=== PATIENT | male | born 1990 | race Two or more races ===

== ENCOUNTER 2017-08-07 20:01 | Emergency (ER) | payer SELFPAY ==
--- NOTE | 2017-08-07 20:04 | PDOC ---
Rapid Medical Evaluation Time Seen by Provider: 08/07/17 20:02 Medical Evaluation: Allergies Allergy/AdvReac Type Severity Reaction Status Date / Time No Known Allergies Allergy Verified 03/05/16 07:55 08/07/17 20:02 Healthy 26 year old male with abdominal pain and vomiting x 5 and diarrhea x 2 today. Unable to keep down anything other than water. V/s unremarkable. Abdomen diffusely tender but not peritoneal. -Abdominal labs -To Main ED for further evaluation
[2017-08-07 20:07] VITALS: BP 125/74; PULSE 90; TEMP 98.6; BMI 22.2
[2017-08-07 20:42] LABS: URINE APPEARANCE CLEAR; URINE BILIRUBIN NEGATIVE (NEGATIVE); URINE BLOOD NEGATIVE (NEGATIVE); URINE COLOR YELLOW; URINE GLUCOSE (UA) NEGATIVE (NEGATIVE); URINE KETONE NEGATIVE (NEGATIVE); URINE LEUK ESTERASE NEGATIVE (NEGATIVE); URINE NITRITE NEGATIVE (NEGATIVE); URINE PROTEIN NEGATIVE (NEGATIVE); URINE UROBILINOGEN 4.0 E.U/dl mg/dL (0.2-1.0)
[2017-08-07] MEDS ORDERED: KETOROLAC TROMETHAMINE 30 MG/1 ML VIAL IVPUSH ONE (20:53)
[2017-08-07] MEDS ORDERED: PANTOPRAZOLE SODIUM 40 MG in SODIUM CHLORIDE 100 ML IVPB ONE (20:53)
[2017-08-07] MEDS ORDERED: SODIUM CHLORIDE 1,000 ML IV STA (20:53)
--- NOTE | 2017-08-07 20:53 | PDOC ---
History of Present Illness - General History Source: Patient Exam Limitations: No Limitations - History of Present Illness Initial Comments: 08/07/17 21:01 The patient is a 26 year old male, with no significant PMHx, who presents to the emergency department with abdominal pain, nausea, vomiting and two epsidoes of diarrhea today. The patient reports his pain as 8/10, diffuse, and crampy. He states he has been unable to tolerate anything by mouth. He reports multiple episodes of nonbloody/nonbilious emesis today. He also report two epsidoes of watery stool earlier in the day. He reports his and child are ill as well. He denies taking medication for pain or other symptoms. Allergies: none reported Surgical Hx: none reported Social Hx: Tobacco use daily <Marylu Cazares - Last Filed: 08/07/17 21:04> - General History Source: Patient <Glenroy Rodriguez - Last Filed: 08/07/17 22:08> - General Chief Complaint: Nausea/Vomiting Stated Complaint: NAUSEA/VOMITING Time Seen by Provider: 08/07/17 20:02 Past History <Marylu Cazares - Last Filed: 08/07/17 21:04> - Suicide/Smoking/Psychosocial Hx Smoking History: Current every day smoker Have you smoked in the past 12 months: No Number of Cigarettes Smoked Daily: 3 Information on smoking cessation initiated: No 'Breaking Loose' booklet given: 10/05/13 Hx Alcohol Use: No Drug/Substance Use Hx: No Substance Use Type: None <Glenroy Rodriguez - Last Filed: 08/07/17 22:08> - Past Medical History Allergies/Adverse Reactions: Allergies Allergy/AdvReac Type Severity Reaction Status Date / Time No Known Allergies Allergy Verified 08/07/17 20:08 Home Medications: Ambulatory Orders Ondansetron [Zofran *Odt*] 4 mg SL TID #30 od.tablet 08/07/17 Review of Systems - Review of Systems Able to Perform ROS?: Yes Comments:: 08/07/17 21:04 CONSTITUTIONAL: Absent: fever, chills, diaphoresis, generalized weakness, malaise, loss of appetite HEENT: Absent: rhinorrhea, nasal congestion, throat pain, throat swelling, difficulty swallowing, mouth swelling, ear pain, eye pain, visual Changes CARDIOVASCULAR: Absent: chest pain, syncope, palpitations, irregular heart rate, lightheadedness , peripheral edema RESPIRATORY: Absent: cough, shortness of breath, dyspnea with exertion, orthopnea, wheezing, stridor, hemoptysis GASTROINTESTINAL: (+) abdominal pain, nausea, vomiting, diarrhea, Absent: abdominal distension, constipation, melena, hematochezia GENITOURINARY: Absent: dysuria, frequency, urgency, hesitancy, hematuria, flank pain, genital pain MUSCULOSKELETAL: Absent: myalgia, arthralgia, joint swelling SKIN: Absent: rash, itching, pallor HEMATOLOGIC/IMMUNOLOGIC: Absent: easy bleeding, easy bruising, lymphadenopathy, frequent infections ENDOCRINE: Absent: unexplained weight gain, unexplained weight loss, heat intolerance, cold intolerance NEUROLOGIC: Absent: headache, focal weakness or paresthesias, dizziness, unsteady gait, seizure, mental status changes, bladder or bowel incontinence PSYCHIATRIC: Absent: anxiety, depression, suicidal or homicidal ideation, hallucinations. <Marylu Cazares - Last Filed: 08/07/17 21:04> *Physical Exam - Vital Signs Last Vital Signs Temp Pulse Resp BP Pulse Ox 98.6 F 90 16 125/74 97 08/07/17 20:04 08/07/17 20:04 08/07/17 20:04 08/07/17 20:04 08/07/17 20:04 - Physical Exam Comments: 08/07/17 21:04 GENERAL: Well developed, well nourished. Awake and alert. No acute distress. HEENT: Normocephalic, atraumatic. PERRLA, EOMI. No conjunctival pallor. Sclera are non- icteric. Moist mucous membranes. Oropharynx is clear. NECK: Supple. Full ROM. No JVD. Carotid pulses 2+ and symmetric, without bruits. No thyromegaly. No lymphadenopathy. CARDIOVASCULAR: Regular rate and rhythm. No murmurs, rubs, or gallops. Distal pulses are 2+ and symmetric. PULMONARY: No evidence of respiratory distress. Lungs clear to auscultation bilaterally. No wheezing, rales or rhonchi. ABDOMINAL: Soft. Non-tender. Non-distended. No rebound or guarding. No organomegaly. Normoactive bowel sounds. MUSCULOSKELETAL Normal range of motion at all joints. No bony deformities or tenderness. No CVA tenderness. EXTREMITIES: No cyanosis. No clubbing. No edema. No calf tenderness. SKIN: Warm and dry. Normal capillary refill. No rashes. No jaundice. NEUROLOGICAL: Alert, awake, appropriate. Cranial nerves 2-12 intact. Normoreflexic in the upper and lower extremities. Normal speech. Toes are down-going bilaterally. Gait is normal without ataxia. PSYCHIATRIC: Cooperative. Good eye contact. Appropriate mood and affect. <Marylu Cazares - Last Filed: 08/07/17 21:04> - Vital Signs Last Vital Signs Temp Pulse Resp BP Pulse Ox 98.6 F 90 16 125/74 97 08/07/17 20:04 08/07/17 20:04 08/07/17 20:04 08/07/17 20:04 08/07/17 20:04 <Glenroy Rodriguez - Last Filed: 08/07/17 22:08> ED Treatment Course - LABORATORY CBC & Chemistry Diagram: 08/07/17 20:14 08/07/17 20:14 - ADDITIONAL ORDERS Additional order review: Laboratory Results 08/07/17 20:30 Urine Color Yellow Urine Appearance Clear Urine pH 6.0 Ur Specific [place] 1.028 Urine Protein Negative Urine Glucose (UA) Negative Urine Ketones Negative Urine Blood Negative Urine Nitrite Negative Urine Bilirubin Negative Urine Urobilinogen 4.0 e.u/dl 08/07/17 20:14 RBC 4.69 MCV 93.4 MCHC 33.7 RDW 13.1 MPV 9.4 D Neutrophils % 87.2 H D Lymphocytes % 4.8 L D Monocytes % 7.5 Eosinophils % 0.2 D Basophils % 0.3 <Marylu Cazares - Last Filed: 08/07/17 21:04> - LABORATORY CBC & Chemistry Diagram: 08/07/17 20:14 08/07/17 20:14 <Glenroy Rodriguez - Last Filed: 08/07/17 22:08> Medical Decision Making - Medical Decision Making 08/07/17 22:05 Dr. Rodriguez: The scribe's documentation has been prepared under my direction and personally reviewed by me in its entirery. I confirm that the note above accurately reflects all work, treatment, procedures, and medical decision making performed by me. Pt feels better after IVF in the department. Pt will be discharged to follow up with his pcp as needed <Glenroy Rodriguez - Last Filed: 08/07/17 22:08> *DC/Admit/Observation/Transfer - Attestations Scribe Attestion: 08/07/17 21:05 Documentation prepared by Marylu Cazares, acting as medical staff services manager for Glenroy Rodriguez DO <Marylu Cazares - Last Filed: 08/07/17 21:04> - Discharge Dispostion Admit: No <Glenroy Rodriguez - Last Filed: 08/07/17 22:08> Diagnosis at time of Disposition: Nausea and vomiting - Discharge Dispostion Disposition: HOME Condition at time of disposition: Improved - Referrals Referrals: Stephanie Squires MD [Staff Physician] - - Patient Instructions Printed Discharge Instructions: DI for Nausea -- Adult, DI for Vomiting -- Adult Additional Instructions: Take medication as directed. Drink plenty of fluids to prevent dehydration. Return if any problems. Encourage good hand washing at home to prevent transfer of illness to others at home. - Post Discharge Activity Forms/Work/School Notes: Back to Work
[2017-08-07 20:57] LABS: BASO % 0.3 % (0-2.0); EOS % 0.2 % (0-4.5); MCH 31.4 pg (25.7-33.7); MCHC 33.7 g/dl (32.0-35.9); MEAN CELL VOLUME 93.4 fl (80-96); MEAN PLT VOLUME 9.4 fl (7.5-11.1); NEUT % 87.2 % (42.8-82.8); PLATELET COUNT 184 K/MM3 (134-434); RDW 13.1 % (11.9-15.9); WHITE BLOOD COUNT 13.9 K/mm3 (4.0-10.0)
[2017-08-07 21:21] LABS: ALBUMIN 4.3 g/dl (3.4-5.0); ALK PHOS 75 U/L (45-117); ANION GAP 8 (8-16); BILIRUBIN,TOTAL 1.9 mg/dL (0.2-1.0); CO2 26 mmol/L (21-32); CREATININE 0.9 mg/dL (0.7-1.3); GLUCOSE,RANDOM 100 mg/dL (74-106); SGOT/AST 15 U/L (15-37); SGPT/ALT 24 U/L (12-78); TOT PROT 7.5 g/dl (6.4-8.2)
[2017-08-07] MEDS ORDERED: PANTOPRAZOLE SODIUM 40 MG/100 ML BAG IVPB ONE (21:42)
[2017-08-07] MEDS ORDERED: KETOROLAC TROMETHAMINE 30 MG/1 ML VIAL ONE (21:42)
[2017-08-07 22:01] LABS: URINE LEUK ESTERASE Negative (NEGATIVE)
== END 2017-08-08 00:30 | disposition home or self-care (01) ==
LOC: JER 20:01
PROC: 3E033GC Introduction of Other Therapeutic Substance into Peripheral Vein, Percutaneous Approach (ICD-10-PCS; principal; 2017-08-07)
PROC: 3E0333Z Introduction of Anti-inflammatory into Peripheral Vein, Percutaneous Approach (ICD-10-PCS; 2017-08-07)
PROC: 3E0337Z Introduction of Electrolytic and Water Balance Substance into Peripheral Vein, Percutaneous Approach (ICD-10-PCS; 2017-08-07)
DX: R11.2 Nausea with vomiting, unspecified (principal)
CPT/HCPCS: 36415; 80053; 81003; 83690; 85025; 99283-25

== ENCOUNTER 2018-01-18 02:12 | Emergency (ER) | payer OTHER ==
[2018-01-18 02:50] VITALS: TEMP 98.1; BMI 19.5
[2018-01-18] MEDS ORDERED: FAMOTIDINE 20 MG/50 ML IVPB 20 MG/50 ML MG IVPB ONE ×2 (03:17→04:11)
[2018-01-18] MEDS ORDERED: ACETAMINOPHEN 1000 MG/100 ML VIAL (NON FORMULARY) IVPB ONE (03:17)
[2018-01-18] MEDS ORDERED: SODIUM CHLORIDE 1,000 ML IV STA (03:17)
[2018-01-18] MEDS ORDERED: ONDANSETRON 4 MG TABLET PO ONE (03:17)
[2018-01-18] MEDS ORDERED: ACETAMINOPHEN INJECTION 100 ML IVPB ONE (03:46)
[2018-01-18] MEDS ORDERED: ONDANSETRON *ODT* 4 MG TABLET ONE (03:46)
[2018-01-18 04:12] LABS: BASO % 0.6 % (0-2.0); EOS % 0.4 % (0-4.5); HEMATOCRIT 40.6 % (35.4-49); HEMOGLOBIN 13.7 GM/dL (11.7-16.9); LYMPH % 16.7 % (8-40); MCH 31.2 pg (25.7-33.7); MCHC 33.7 g/dl (32.0-35.9); MEAN CELL VOLUME 92.7 fl (80-96); MEAN PLT VOLUME 8.4 fl (7.5-11.1); MONO % 8.6 % (3.8-10.2); NEUT % 73.7 % (42.8-82.8); PLATELET COUNT 217 K/MM3 (134-434); RBC 4.38 M/mm3 (4.00-5.60); RDW 12.9 % (11.9-15.9); WHITE BLOOD COUNT 9.9 K/mm3 (4.0-10.0)
[2018-01-18 04:29] LABS: ALBUMIN 4.2 g/dl (3.4-5.0); ALK PHOS 72 U/L (45-117); ANION GAP 8 (8-16); BILIRUBIN,TOTAL 0.5 mg/dL (0.2-1.0); BLOOD UREA NITROGEN 7 mg/dL (7-18); CALCIUM 9.1 mg/dL (8.5-10.1); CHLORIDE 106 mmol/L (98-107); CO2 29 mmol/L (21-32); CREATININE 0.8 mg/dL (0.7-1.3); GLUCOSE,RANDOM 105 mg/dL (74-106); LIPASE 117 U/L (73-393); POTASSIUM 3.7 mmol/L (3.5-5.1); SGOT/AST 18 U/L (15-37); SGPT/ALT 21 U/L (12-78); SODIUM 143 mmol/L (136-145); TOT PROT 7.2 g/dl (6.4-8.2)
--- NOTE | 2018-01-18 04:33 | PDOC ---
History of Present Illness - General Chief Complaint: Pain, Acute Stated Complaint: ABD PAIN Time Seen by Provider: 01/18/18 02:54 - History of Present Illness Initial Comments: 01/18/18 04:30 27 M with no PMH presents to ED with epigastric and RLQ pain. Pt states that he awoke with the pain this morning. It is associated with nausea and vomiting. Pt denies F/C. Denies diarrhea/constipation. Pt endorses drinking one drink earlier this evening. Denies any other drug use, denies marijuana. Pt denies prior surgical history. Denies dysuria. Denies scrotal pain. Past History - Past Medical History Allergies/Adverse Reactions: Allergies Allergy/AdvReac Type Severity Reaction Status Date / Time No Known Allergies Allergy Verified 01/18/18 02:47 Home Medications: Ambulatory Orders Ondansetron [Zofran *Odt*] 4 mg SL TID #30 od.tablet 08/07/17 COPD: No - Suicide/Smoking/Psychosocial Hx Smoking History: Never smoked Have you smoked in the past 12 months: No Number of Cigarettes Smoked Daily: 3 Information on smoking cessation initiated: No 'Breaking Loose' booklet given: 10/05/13 Hx Alcohol Use: No Drug/Substance Use Hx: No Substance Use Type: None Review of Systems - Review of Systems Comments:: 01/18/18 04:32 "GENERAL/CONSTITUTIONAL: No fever or chills. No weakness. HEAD, EYES, EARS, NOSE AND THROAT: No change in vision. No ear pain or discharge. No sore throat. CARDIOVASCULAR: No chest pain or shortness of breath. RESPIRATORY: No cough, wheezing, or hemoptysis. GASTROINTESTINAL: + abdominal pain, + nausea, + vomiting, no diarrhea or constipation. GENITOURINARY: No dysuria, frequency, or change in urination. MUSCULOSKELETAL: No joint or muscle swelling or pain. No neck or back pain. SKIN: No rash NEUROLOGIC: No headache, vertigo, loss of consciousness, or change in strength/ sensation. ENDOCRINE: No increased thirst. No abnormal weight change. HEMATOLOGIC/LYMPHATIC: No anemia, easy bleeding, or history of blood clots. ALLERGIC/IMMUNOLOGIC: No hives or skin allergy. " *Physical Exam - Vital Signs Last Vital Signs Temp Pulse Resp BP Pulse Ox 98.1 F 71 18 129/77 97 01/18/18 02:47 01/18/18 02:47 01/18/18 02:47 01/18/18 02:47 01/18/18 02:47 - Physical Exam Comments: 01/18/18 04:32 "GENERAL: Awake, alert, and fully oriented, in no acute distress. HEAD: No signs of trauma EYES: PERRLA, EOMI, sclera anicteric, conjunctiva clear ENT: Auricles normal inspection, hearing grossly normal, nares patent, oropharynx clear without exudates. Moist mucosa NECK: Nontender, no stepoffs, Normal ROM, supple, no lymphadenopathy, JVD, or masses LUNGS: Breath sounds equal, clear to auscultation bilaterally. No wheezes, and no crackles HEART: Regular rate and rhythm, normal S1 and S2, no murmurs, rubs or gallops ABDOMEN: + epigastric and RLQ TTP, normoactive bowel sounds. No guarding, no rebound. No masses EXTREMITIES: Normal range of motion, no edema. No clubbing or cyanosis. No cords, erythema, or tenderness NEUROLOGICAL: Cranial nerves II through XII intact. 5/5 strength and sensation in all extremities, Normal speech, normal gait, normal cerebellar function SKIN: Warm, Dry, normal turgor, no rashes or lesions noted. : normal scrotum, normal cremasteric reflex ED Treatment Course - LABORATORY CBC & Chemistry Diagram: 01/18/18 04:00 01/18/18 04:00 - ADDITIONAL ORDERS Additional order review: 01/18/18 04:00 RBC 4.38 MCV 92.7 MCHC 33.7 RDW 12.9 MPV 8.4 D Neutrophils % 73.7 Lymphocytes % 16.7 D Monocytes % 8.6 Eosinophils % 0.4 D Basophils % 0.6 - RADIOLOGY Radiology Studies Ordered: Category Date Time Status ABDOMEN & PELVIS CT WITH CONTR [CT] Stat CT Scan 01/18/18 03:17 Ordered - Medications Given in the ED: ED Medications Discontinued Medications Generic Name Dose Route Start Last Admin Trade Name Freq PRN Reason Stop Dose Admin Acetaminophen 1,000 mg 01/18/18 03:17 01/18/18 04:06 Ofirmev Injection - IVPB 01/18/18 03:18 1,000 mg ONCE ONE Administration Famotidine/Sodium Chloride 20 mg in 50 mls @ 100 mls/hr 01/18/18 03:17 04:06 Pepcid 20 Mg Premixed Ivpb - IVPB 01/18/18 03:46 100 mls/hr ONCE ONE Administration Sodium Chloride 1,000 mls @ 1,000 mls/hr 01/18/18 03:17 01/18/18 04:06 Normal Saline - IV 01/18/18 04:16 1,000 mls/hr ASDIR STA Administration Ondansetron HCl 4 mg 01/18/18 03:17 01/18/18 04:06 Zofran - PO 01/18/18 03:18 4 mg ONCE ONE Administration Medical Decision Making - Medical Decision Making 01/18/18 04:32 27 M with epigastric and RLQ pain with vomiting. Likely gastritis as pt was drinking alcohol earlier. Also consider pancreatitis. Acute appy is unlikely but cannot be ruled out as pt is tender in RLQ. - Labs, lipase - CTAP - IVF, pepcid, zofran 01/18/18 06:09 Labs wnl CTAP unremarkable. Pt reassessed - now with resolution of pain after meds. Abdomen benign. Pt is well appearing, with normal vitals. Clinically stable for DC at this time. I discussed the physical exam findings, ancillary test results and final diagnoses with the patient. I answered all of the patient's questions. The patient was satisfied with the care received and felt comfortable with the discharge plan and treatment plan. The patient agrees to follow up with the primary care physician within 24-72 hours. *DC/Admit/Observation/Transfer Diagnosis at time of Disposition: Abdominal pain - Discharge Dispostion Disposition: HOME - Referrals Referrals: JONATHAN BA [Primary Care Provider] - Danilo Gray DO [Staff Physician] - - Patient Instructions Printed Discharge Instructions: DI for Gastritis Additional Instructions: Please follow up with a csw for further evaluation of your abdominal pain. You may need an endoscopy to rule out ulcers. Call the number provided to make an appointment. If you experience worsening pain, vomiting, or any other concerning symptoms, return to the ER immediately. - Post Discharge Activity - Attestations Physician Attestion: 01/18/18 06:11 I, Dr. Ahsan Stovall MD, attest that this document has been prepared under my direction and personally reviewed by me in its entirety. I further attest, that it accurately reflects all work, treatment, procedures and medical decision -making performed by me.
[2018-01-18 06:07] VITALS: BP 129/70; PULSE 87
== END 2018-01-18 06:36 | disposition home or self-care (01) ==
LOC: JER 02:12
PROC: 3E033NZ Introduction of Analgesics, Hypnotics, Sedatives into Peripheral Vein, Percutaneous Approach (ICD-10-PCS; principal; 2018-01-18)
PROC: 3E033GC Introduction of Other Therapeutic Substance into Peripheral Vein, Percutaneous Approach (ICD-10-PCS; 2018-01-18)
PROC: 3E0337Z Introduction of Electrolytic and Water Balance Substance into Peripheral Vein, Percutaneous Approach (ICD-10-PCS; 2018-01-18)
DX: R10.9 Unspecified abdominal pain (principal)
CPT/HCPCS: 36415; 74177-TC; 80053; 83690; 85025; 96361; 96365; 96375; 99282-25; J0131; J7030

== ENCOUNTER 2018-12-25 16:24 | Emergency (ER) | payer OTHER ==
--- NOTE | 2018-12-25 16:40 | PDOC ---
Rapid Medical Evaluation Time Seen by Provider: 12/25/18 16:39 Medical Evaluation: Allergies Allergy/AdvReac Type Severity Reaction Status Date / Time No Known Allergies Allergy Verified 01/18/18 02:47 12/25/18 16:39 HPI: B foot discomfort x 1 week PE: Ambulates no distress ORDERS: Nothing Discharge Disposition - Diagnosis Fungal infection - Referrals - Patient Instructions - Post Discharge Activity
[2018-12-25 16:42] VITALS: BP 117/75; PULSE 89; TEMP 98.5; BMI 32.2
--- NOTE | 2018-12-25 16:54 | PDOC ---
History of Present Illness - General Chief Complaint: Pain Stated Complaint: SORES IN FOOT/BOTH Time Seen by Provider: 12/25/18 16:39 History Source: Patient Exam Limitations: No Limitations - History of Present Illness Initial Comments: Patient is a 28-year-old male with no history of HIV or hepatitis who presents with blisters on the plantar aspect of both feet bilaterally. Patient states that he has had this since he was a child however has no official diagnosis. Pt denies history of lichen planus. Patient denies history of diabetes. He describes the pain as a constant throb, worse with ambulation rates at a 5 out of 10. Patient denies any relieving factors. 12/25/18 16:52 Past History - Travel Traveled outside of the country in the last 30 days: No Close contact w/someone who was outside of country & ill: No - Past Medical History Allergies/Adverse Reactions: Allergies Allergy/AdvReac Type Severity Reaction Status Date / Time No Known Allergies Allergy Verified 12/25/18 16:40 Home Medications: Ambulatory Orders Tramadol HCl [Ultram] 50 mg PO TID 3 Days #10 tablet MDD 3 12/25/18 COPD: No - Suicide/Smoking/Psychosocial Hx Smoking History: Never smoked Have you smoked in the past 12 months: No Number of Cigarettes Smoked Daily: 3 Information on smoking cessation initiated: No 'Breaking Loose' booklet given: 10/05/13 Hx Alcohol Use: No Drug/Substance Use Hx: No Substance Use Type: None Review of Systems - Review of Systems Able to Perform ROS?: Yes Constitutional: No: Chills, Fever (All other systems are negative except for those present in HPI) *Physical Exam - Vital Signs Last Vital Signs Temp Pulse Resp BP Pulse Ox 98.5 F 89 16 117/75 98 12/25/18 16:40 12/25/18 16:40 12/25/18 16:40 12/25/18 16:40 12/25/18 16:40 - Physical Exam Comments: Constitutional: VS stated, pt appears in no apparent distress; sitting in chair. Skin: Multiple 0.5 cm bulla on the plantar aspect of the feet bilaterally. No signs of secondary infection. Head: Normocephalic; atraumatic Eyes: conjunctiva pink without injection or discharge. Throat: Oropharynx with pink and moist mucosa. Lungs: Bilateral breath sounds clear upon auscultation. No adventitious breath sounds. Heart: Regular rate and rhythm, Musculoskeletal: Moves all extremities without difficulty. Neurologic: Awake, alert. Psychiatric: Appropriate affect. 12/25/18 16:54 *DC/Admit/Observation/Transfer Diagnosis at time of Disposition: Fungal infection, Lichen planus - Discharge Dispostion Disposition: HOME Condition at time of disposition: Good - Prescriptions Prescriptions: Tramadol HCl [Ultram] 50 mg PO TID 3 Days #10 tablet MDD 3 - Referrals - Patient Instructions Printed Discharge Instructions: DI for Lichen Planus - Post Discharge Activity Forms/Work/School Notes: Back to Work
== END 2018-12-25 17:03 | disposition home or self-care (01) ==
LOC: JERFT 16:24
DX: L43.9 Lichen planus, unspecified (principal)
CPT/HCPCS: 99281-25